=== PATIENT | female | born 2000 | race Caucasian/White ===

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

== ENCOUNTER 2022-01-12 16:37 | Emergency (ER) | payer MEDICAID, SELFPAY ==
[2022-01-12 16:41] VITALS: BP 143/83; PULSE 114; RESP 16; TEMP 36.9; O2SAT 100
[2022-01-12] MEDS: lidocaine 1% INJ 20 mL MDV (mL) INTRADERMA (18:03)
[2022-01-12] MEDS: HYDROcodone-acetaminophen 5-325 mg Tablet 1 TAB PO (18:31)
[2022-01-12 18:32] VITALS: BP 121/67; PULSE 85; RESP 18; O2SAT 98
--- NOTE | 2022-01-12 22:19 | ED_ITS ---
Documented by User: RICHELLE Krishnamurthy 01/12/22 22:27 HPI - Wound/Laceration General: Chief Complaint: Wound/Laceration Stated Complaint: Possible Cyst Time Seen by Provider: 01/12/22 16:45 History of Present Illness: Patient is in today for an abscess on her bottom. She reports that she has had this a year or so ago and had to have it drained in Dr. Marie office. She reports that she did see a surgeon to have that drained also and they told her if it came back again to just call and schedule an appointment. She reports that she has an appointment scheduled this coming Friday. She reports that she just is hurting so bad today she does not know if she can make it. She denies any fever or chills. She has been doing sitz bath's at home to try and help. Associated symptoms: Denies chills or fever(s) Review of Systems Const: Denies: fever(s), chills or body aches Skin/Breast: Reports: other (Abscess to the buttocks) [facility] ED PFSH: Medical History Pilonidal abscess Surgical History History of tonsillectomy Family History Denies family history of Anesthesia complication Bleeding disorder Social History Smoking and tobacco status: never smoked Female Reproductive History: Date of last menstrual period: 08/14/20 Physical Exam Const: COMMON NORMALS: no acute distress, patient oriented x3 and alert Resp: COMMON NORMALS: normal respiratory effort, No use of accessory muscles and clear to auscultation bilaterally AUSCULTATION: clear to auscultation bilaterally Cardio: COMMON NORMALS: regular rate, regular rhythm, S1 normal heart sound present and S2 normal heart sound present RATE: regular rate RHYTHM: regular rhythm HEART SOUNDS: S1 normal heart sound present and S2 normal heart sound present Neuro: COMMON NORMALS: patient oriented x3 SENSORIUM/ORIENTATION: Yes alert Skin: NARRATIVE SKIN EXAM: Patient has golf ball sized fluctuant abscess noted to the right buttocks near the gluteal cleft. There is some firmness and tenderness crossing the gluteal cleft to the left buttocks. No fluctuant mass is appreciated on the left side buttocks. Procedures Abscess I/D Site: other (Buttock) Side (if applicable): right Local Anesthetic: lidocaine 1% Amount of anesthesia used (mL): 5 Technique: incised with #11 blade Amount of fluid expressed (mL): 30 Irrigation: Yes Packing used?: none (Patient refused) Complications: pain Course Vital Signs: Vital signs: Vital Signs Temperature 98.5 F 01/12/22 16:41 Pulse Rate 85 01/12/22 18:32 Respiratory Rate 18 01/12/22 18:32 Blood Pressure 121/67 01/12/22 18:32 Pulse Oximetry 98 01/12/22 18:32 MDM - Wound/Laceration Medical Decision Making 21-year-old female in for abscess to her buttocks. Patient was hesitant to even have this abscess drained. I had a lengthy discussion with her regarding the importance of getting some of that infection out of there. I am afraid that is going to be much more painful and she will feel much worse if she waits until Friday. Area is cleansed and lidocaine is injected. Once adequate anes thetic is obtained 11 blade incision made approximately 1 cm to the area of fluctuance on the right buttocks. Immediate large amount of purulent drainage pouring from the incision. Wound culture is collected. Irrigated the abscess with normal saline and then a large amount of purulent drainage began to pour out again. I would estimate 30+ cc of drainage out of this abscess. Patient stated that she could no longer tolerate drainage of the abscess and did wish that we would stop. There is still some fluctuance noted however it is significantly improved. Patient declined packing. I discussed with her the benefits of packing so that this will stay open and continue draining but she declines. She wants to just wait and follow-up with the surgeon. We discussed conservative treatments at home including sits baths 3 or 4 times a day to help keep this draining warm moist compresses to the area. Patient started on antibiotic medication. Advised her to notify her surgeon and follow-up this week as previously scheduled. Return to the ER for any new or worsening symptoms. Patient is agreeable and voices understanding of all instruction. All questions answered to satisfaction. Pain medication provided to patient under the direction of Dr. Will. Discharge Plan Discharge Patient Disposition: Home Clinical Impression: Abscess Condition: Stable Prescriptions: New clindamycin HCl 300 mg capsule 300 mg PO TID 7 Days Qty: 21 0RF ibuprofen 800 mg tablet 800 mg PO Q8H PRN (Reason: pain) Qty: 14 0RF No Action cephalexin 500 mg capsule 500 mg PO TID 7 Days Qty: 21 1RF Discharge Orders: Discharge ED (Routine); Ordered 01/12/22 Ordered By: Monie Chang Referrals: Murali Marie MD [Primary Care Provider] - Discharge Diet: Usual diet Discharge Activity: Resume usual activity Patient Instructions: Abscess (ED) Activity Restrictions/Additional Instructions: Take antibiotics as prescribed. Do sitz bath and warm moist compresses 3-4 times daily. Follow-up, as previously scheduled, with surgeon this week. Retu rn to the ER for any new or worsening symptoms. Coding Level of Care Code ED Real Estate Administrative Assistant for Chg Fwd Exam Expanded Problem Focused Documented by User: Saul iWll DO 01/13/22 03:02 HPI - Wound/Laceration General: Chief Complaint: Wound/Laceration Stated Complaint: Possible Cyst Time Seen by Provider: 01/12/22 16:45 PFSH ED PFSH: Medical History Pilonidal abscess Surgical History History of tonsillectomy Family History Denies family history of Anesthesia complication Bleeding disorder Social History Smoking and tobacco status: never smoked Course Vital Signs: Vital signs: Vital Signs Temperature 98.5 F 01/12/22 16:41 Pulse Rate 85 01/12/22 18:32 Respiratory Rate 18 01/12/22 18:32 Blood Pressure 121/67 01/12/22 18:32 Pulse Oximetry 98 01/12/22 18:32 MDM - Wound/Laceration Medical Decision Making 21-year-old female in for abscess to her buttocks. Patient was hesitant to even have this abscess drained. I had a lengthy discussion with her regarding the importance of getting some of that infection out of there. I am afraid that is going to be much more painful and she will feel much worse if she waits until Friday. Area is cleansed and lidocaine is injected. Once adequate anesthetic is obtained 11 blade incision made approximately 1 cm to the area of fluctuance on the right buttocks. Immediate large amount of purulent drainage pouring from the incision. Wound culture is collected. Irrigated the abscess with normal saline and then a large amount of purulent drainage began to pour out again. I would estimate 30+ cc of drainage out of this abscess. Patient stated that she could no longer tolerate drainage of the abscess and did wish that we would stop. There is still some fluctuance noted however it is significantly improved. Patient declined packing. I discussed with her the benefits of packing so that this will stay open and continue draining but she declines. She wants to just wait and follow-up with the surgeon. We discussed conservative treatments at home including sits baths 3 or 4 times a day to help keep this draining warm moist compresses to the area. Patient started on antibiotic medication. Advised her to notify her surgeon and follow-up this wee k as previously scheduled. Return to the ER for any new or worsening symptoms. Patient is agreeable and voices understanding of all instruction. All questions answered to satisfaction. Pain medication provided to patient under the direction of Dr. Will. This patient was originally seen by KRISHNA Jung.? I agree with her history, evaluation, and treatment. Discharge Plan Discharge Patient Disposition: Home Clinical Impression: Abscess Condition: Stable Prescriptions: New clindamycin HCl 300 mg capsule 300 mg PO TID 7 Days Qty: 21 0RF ibuprofen 800 mg tablet 800 mg PO Q8H PRN (Reason: pain) Qty: 14 0RF No Action cephalexin 500 mg capsule 500 mg PO TID 7 Days Qty: 21 1RF Discharge Orders: Discharge ED (Routine); Ordered 01/12/22 Ordered By: Monie Chang Referrals: Murali Marie MD [Primary Care Provider] - Discharge Diet: Usual diet Discharge Activity: Resume usual activity Patient Instructions: Abscess (ED) Activity Restrictions/Additional Instructions: Take antibiotics as prescribed. Do sitz bath and warm moist compresses 3-4 times daily. Follow-up, as previously scheduled, with surgeon this week. Return to the ER for any new or worsening symptoms. Coding Level of Care Code ED Real Estate Administrative Assistant for Chg Fwd Exam Expanded Problem Focused
== END 2022-01-12 18:33 | disposition home or self-care (01) ==
PROVIDERS: Emergency Provider Nurse Practitioner Family; PCP Family Medicine
DX: L02.31 Cutaneous abscess of buttock (principal)
CPT/HCPCS: 10060; 87070; 87075; 87205; 99283

== ENCOUNTER 2022-01-21 07:55 | Day surgery (SDC) | payer MEDICAID, SELFPAY ==
[2022-01-18 11:58] VITALS: BMI 25.0
[2022-01-21] VITALS (11 sets, daily range): BP systolic 117–150; BP diastolic 42–92; PULSE 72–108; RESP 16–18; TEMP 36.2–37.1; O2SAT 93–100
[2022-01-21 08:32] LABS: OR HCG Qualitative Urine Negative (Negative)
[2022-01-21] MEDS: acetaminophen 1,000 MG/100 ML PIGGYBACK 400 MG IV (08:34)
[2022-01-21] MEDS: sodium chloride 0.9% 1,000 ML 30 ML IV (08:35)
[2022-01-21] MEDS: heparin 5,000 unit/mL INJ 1 mL 2000 UNIT SUBCUT (08:39)
--- NOTE | 2022-01-21 09:03 | ANES.PREANE2 ---
Pre-Anesthetic Assessment Height/Weight: Height 1.7 m Weight 72.575 kg Temp Pulse Resp BP Pulse Ox O2 Del Method 98.3 F 72 18 146/83 99 01/21/22 08:20 01/21/22 08:20 01/21/22 08:20 01/21/22 08:20 01/21/22 08:20 01/21/22 08:20 Preop Diagnosis: Lower back pilonidal cyst Operation Date: 01/21/22 09:40 Proposed Procedures p Pilonidal Cystectomy(Not Applicable) - Cale Kern MD Familial anesthetic complications: NOne Was Beta Kenton taken within 24 hours: N/A Was Clonidine taken within 24 hours: N/A Last intake: Intake Last Liquid Date 01/20/22 Last Liquid Time 23:30 Last Solid Date 01/20/22 Last Solid Time 22:30 Social No alcohol and No tobacco occassional marijuana use Exam alert, oriented x 3, clear to auscultation bilaterally and regular rate & rhythm Airway Mallampati: Class I Dentition: full Anesthetic Plan ASA status: 1 Anesthesia: General Risk of > 500 ml blood loss (7ml/kg in children): No Medications/Allergies Home Medications Medication Instructions Recorded Confirmed Last Taken Type cephalexin 500 mg capsule 500 mg PO TID 7 days #21 caps 03/06/21 01/21/22 01/20/22 06:00 Rx Allergies Allergy/AdvReac Type Severity Reaction Status Date / Time Latex, Natural Rubber Allergy ALGY-Hives Verified 01/21/22 08:16 Current Medications Generic Name Dose Route Start Last Admin Trade Name Freq PRN Reason Stop Dose Admin Sodium Chloride 1,000 mls @ 30 mls/hr 01/21/22 08:15 01/21/22 08:35 Sodium Chloride 0.9% IV 01/22/22 08:14 30 mls/hr .Q24H SUNNY Administration PFSH Anesthesia Medical History Pilonidal abscess Surgical History History of tonsillectomy Family History Denies family history of Anesthesia complication Bleeding disorder Social History Smoking and tobacco status: never smoked Female Reproductive History Date of last menstrual period: 08/14/20 Data Anesthesia Cardiac Studies: No Data to Display
--- NOTE | 2022-01-21 09:26 | W.PM.OPSUD ---
Surgery/Procedure H&P Update DATE OF PROCEDURE: January 21, 2022 DATE H&P PERFORMED: 01/16/22 H&P UPDATE INFORMATION: I have reviewed H&P completed within last 30 days, I have examined patient prior to procedure and No changes to prior documentation PREOP DIAGNOSIS: Lower back pilonidal cyst PRIMARY INDICATION FOR PROCEDURE: The same PLANNED PROCEDURE: Operation Date: 01/21/22 09:40 Proposed Procedures p Pilonidal Cystectomy(Not Applicable) - Cale Kern MD
[2022-01-21] MEDS: lidocaine 2% INJ 20 mL INJECTION (09:55)
[2022-01-21] MEDS: ceFAZolin 2,000 MG in sodium chloride 0.9% (plus) 50 ML 100 MG IV (09:55)
--- NOTE | 2022-01-21 10:55 | PM.OP ---
Operative Report Date of procedure: January 21, 2022 Pre-op diagnosis: Preop Diagnosis Lower back pilonidal cyst Procedure done: Lower back pilonidal cystectomy Implants: Surgicel followed by 1 inch Nu Gauze packing then ABDs Specimens removed/disposition: Lower back pilonidal mass sutures marked superior Surgeon: Cale Kern MD Public Health Sanitarian Technician: electrical manufacturing technician Ermelinda Estimated blood loss (mL): 3 IV fluids (mL): 800 Procedure: After identifying the patient holding area,, patient was then taken to the operative suite, was placed in first in supine position, endotracheal tube was placed by the anesthesia provider and,Time-out was done verifying the patient's name/date of /planned procedure and destination after the procedure, all were in agreement. SCDs confirmed to be functioning, preoperative antibiotics administered per protocol, and beta chelsi protocol was confirmed,appropriate positioning of the patient was done by me and the staff patient was then placed in prone position, all pressure points were padded. Prep and drape of the lower back region was done under the usual sterile technique. Elliptical skin incision was done including multiple smaller pits of the anal cleft as well as the previous wound(to the left of the midline) of the previous incision and drainage site,incision was done all the way down to the subcutaneous tissues and periosteal covering the coccyx, dissection was then carried on , pilonidal mass all excised en toto , the mass was oriented by 3-0 nylon sutures in the form of sutures marked superior then passed to the circulating nurse for permanent pathology. Curettge was then achieved to the cavity to remove any residual of unhealthy granulation tissues .Hemostasis was then achieved using Bovie cautery, followed by irrigation with normal saline, 2-0 Vicryl were used as an interrupted sutures, bites were taken from the subdermal level to the periosteum and tied down to make the wound gap more shallow to help healing postoperatively and make the packing easier on the patient, suturing was done in an interrupted circumferential fashion . Local anesthesia 2% lidocaine was infiltrated surrounding the wound cavity, wound was then packed by Surgicel/1 inch Nu Gauze and dry 4 x 4 followed by ABDs and tape Count was completed at the end of the procedure Patient was taken to the recovery room in stable condition after extubation I was present for the whole entire procedur
--- NOTE | 2022-01-21 11:07 | P.PCN_ITS ---
PACU note Narrative: VSS, Good respiratory effort, report to HOSPITAL ADMISSIONS OFFICER Exam: awake
--- NOTE | 2022-01-21 11:07 | PM.PACU ---
PACU note Narrative: VSS, Good respiratory effort, report to [employer] BUYER Exam: awake
[2022-01-21] MEDS: fentaNYL 50 mcg/mL INJ 2mL IVP (11:13)
[2022-01-21] MEDS: meperidine 50 mg/mL INJ 12.5 MG IVP (11:13)
[2022-01-21] MEDS: HYDROcodone-acetaminophen 5-325 mg Tablet 1 TAB PO (12:00)
--- NOTE | 2022-01-21 13:20 | ANE.PACU2 ---
Inpatient post-anesthesia follow up: Airway intact: Yes Vital signs: Temperature 97.8 F Pulse Rate 77 Respiratory Rate 18 Blood Pressure 127/78 Pulse Oximetry 97 Oxygen Delivery Me thod Room Air Oxygen Flow Rate 6 Fraction of Inspir ed Oxygen Hydration adequate: Yes Nausea and vomiting: No Pain level: 2 Mental status: Baseline
== END 2022-01-21 12:30 | disposition home or self-care (01) ==
PROVIDERS: Anesthesiology; Surgery; PCP Family Medicine; Visit Provider Surgery
PROC: (CPT 11771; principal; 2022-01-21 09:30)
DX: L05.91 Pilonidal cyst without abscess (principal)
CPT/HCPCS: 11771; 81025; 84703; 88304; J1100; J1644; J2175; J2405; J2704; J2710; J3010; J3490; J7030

== ENCOUNTER 2023-02-18 09:39 | Outpatient (CLI) | payer MEDICAID, SELFPAY ==
[2023-02-18] VITALS (7 sets, daily range): BP systolic 118–128; BP diastolic 66–72; PULSE 80–89; RESP 16; TEMP 35.8; BMI 30.8
[2023-02-18 10:49] LABS: Bilirubin Urine Neg (Negative); Blood Urine Neg (Negative); Glucose Urine UA Norm (Normal); Ketones Urine Negative (Negative); Leukocyte Esterase Urine Negative (Negative); Nitrate Urine Negative (Negative); Protein Urine Neg (Negative); Specific Gravity, Urine 1.015 (1.005-1.030); Urine Appearance Clear (CLEAR); Urine Color Yellow (Yellow); Urobilinogen Urine Norm (Negative); pH Urine 7 (5-7)
[2023-02-18 11:04] LABS: Add Urine Culture? No; Bacteria Urine TRACE /hpf; RBC Urine 0-4 /hpf (0-2); Squamous Epithelial Cell Urine 0-4 /hpf (0-5); WBC Urine 0-4 /hpf (0-5)
== END 2023-02-18 11:20 | disposition home or self-care (01) ==
LOC: OPOB 09:43 → OBGYN 09:45
PROVIDERS: PCP Family Medicine; Visit Provider Family Medicine
DX: O16.9 Unspecified maternal hypertension, unspecified trimester (principal); Z3A.00 Weeks of gestation of pregnancy not specified
CPT/HCPCS: 59025; 81001; 99211

== ENCOUNTER 2023-04-21 12:14 | Outpatient (CLI) | payer MEDICAID, SELFPAY ==
[2023-04-21 12:21] VITALS: TEMP 35.2
[2023-04-21 12:22] VITALS: BP 131/78; PULSE 123
[2023-04-21 12:27] VITALS: BMI 36.8
[2023-04-21 12:36] VITALS: BP 124/75; PULSE 101
== END 2023-04-21 12:55 | disposition home or self-care (01) ==
LOC: OPOB 12:14 → OBGYN 12:45
PROVIDERS: PCP Family Medicine; Visit Provider Family Medicine
DX: O16.9 Unspecified maternal hypertension, unspecified trimester (principal); Z3A.00 Weeks of gestation of pregnancy not specified; R51.9 Headache, unspecified; H53.8 Other visual disturbances
CPT/HCPCS: 59025; 99211

== ENCOUNTER 2023-04-23 19:17 | Inpatient (IN) | payer MEDICAID, SELFPAY ==
[2023-04-23] VITALS (75 sets, daily range): BP systolic 124–170; BP diastolic 58–110; PULSE 92–167; RESP 15; O2SAT 93–100; BMI 36.1
[2023-04-23] MEDS: lactated ringers 1,000 ML 999 ML IV (19:35)
[2023-04-23] MEDS: fentaNYL 50 mcg/mL INJ 2mL IVP (20:02)
[2023-04-23 20:13] LABS: Basophils # 0.1 10^3/uL (0.0-0.1); Basophils % 0.3 %; Eosinophils # 0.2 10^3/uL (0.0-0.8); Eosinophils % 1.1 %; Hematocrit 41.3 % (36-47); Lymphocytes # 2.3 10^3/uL (0.8-4.8); Lymphocytes % 11.3 %; Mean Corpuscular HGB Conc 32.4 g/dL (30-55); Mean Corpuscular Hemoglobin 27.3 pg (27-33); Mean Corpuscular Volume 84.1 fl (85-98); Monocytes % 4.7 %; Neutrophils # 16.64 10^3/uL (1.8-7.7); Neutrophils % 81.3 %; Nucleated Red Blood Cells % 0 %; Platelet Count 288 10^3/cmm (157-399); Red Blood Count 4.91 10^6/uL (3.85-5.65); Red Cell Distribution Width 13.7 % (12.1-15.1); White Blood Count 20.47 10^3/uL (3.29-11.43)
--- NOTE | 2023-04-23 20:22 | ANES.PREANE2 ---
Pre-Anesthetic Assessment Height/Weight: Height 1.7 m Pulse Resp BP 94 15 137/74 04/23/23 20:16 04/23/23 20:02 04/23/23 20:16 Preop Diagnosis: labor pain epidural Familial anesthetic complications: none Was Beta Kenton taken within 24 hours: N/A Was Clonidine taken within 24 hours: N/A Exam alert, oriented x 3, clear to auscultation bilaterally and regular rate & rhythm Airway Submandibular: within normal limits Cervical ROM: within normal limits Mallampati: Class II Dentition: full Pulmonary None reported CV/HEM Anemia None reported Hepatic None reported GI Gastroesophageal Reflux Disease Metabolic None reported [facility] [place] [facility] Scoliosis Neuropsych Anxiety Anesthetic Plan ASA status: 2 Anesthesia: Regional (specify below) Risk of > 500 ml blood loss (7ml/kg in children): No Medications/Allergies Home Medications Medication Instructions Recorded Confirmed Last Taken Type escitalopram oxalate 5 mg tablet 5 mg PO DAILY 02/18/23 02/18/23 02/17/23 22:00 History (Lexapro) ferrous sulfate 325 mg (65 mg 325 mg PO BIDWM 02/18/23 02/18/23 02/18/23 08:00 History iron) tablet (iron) vits no.124-ferrous fum 1 tab PO DAILY 02/18/23 02/18/23 02/18/23 08:00 History 27 mg iron-folic acid 800 mcg tablet ( Vitamin) Allergies Allergy/AdvReac Type Severity Reaction Status Date / Time Latex, Natural Rubber Allergy ALGY-Hives Verified 02/19/22 14:18 Current Medications Generic Name Dose Route Start Last Admin Trade Name Batsheva PRN Reason Stop Dose Admin Fentanyl 25 - 100 mcg 04/23/23 19:15 04/23/23 20:02 Fentanyl 50 Mcg/Ml Inj 2ml IVP 25 mcg Q1H PRN Administration SEVERE PAIN Lactated Ringer's 1,000 mls @ 999 mls/hr 04/23/23 19:15 04/23/23 19:35 Lactated Ringers IV 999 mls/hr .Q1H1M PRN Administration See label comments PFSH Anesthesia Medical History Pilonidal abscess Surgical History History of tonsillectomy Family History Denies family history of Anesthesia complication Bleeding disorder Social History Smoking and tobacco/nicotine status: never used tobacco/nicotine Data Anesthesia 04/23/23 19:22 Short CBC 04/23/23 Range/Units 19:22 WBC 20.47 H (3.29-11.43) 10^3/uL Hgb 13.40 (11.27-16.99) g/dL Hct 41.3 (36-47) % MCV 84.1 L (85-98) fl Plt Count 288 (157-399) 10^3/cmm Neut % (Auto) 81.3 % Neut # (Auto) 16.64 H (1.8-7.7) 10^3/uL Blood Bank 04/23/23 19:22 Blood Type O Positive Rho(D) Type Rh positive Antibody Screen Negative Cardiac Studies: No Data to Display
[2023-04-23] MEDS: ampicillin 2,000 MG in sodium chloride 0.9% (plus) 50 ML 100 MG IV (20:26)
[2023-04-23] MEDS: ROPivacaine syringe 100 MG/50 ML SYRINGE 10 MG EPIDURAL (21:30)
--- NOTE | 2023-04-23 21:50 | ANES.PROC ---
Anesthesia Procedures Procedure/Date: 04/23/23 Epidural: Time Out Performed: Yes Consents Signed: Procedure Consent Consent: requested by attending/covering physician, from patient, risks and benefits reviewed and patient agrees to proceed Lumbar Level: L3-L4 Epidural position: sitting Epidural procedure: sterile prep of area, 1% lidocaine to numb the area, 18 g needle, negative for paresthesia passed, test dose given, 1.5% xylocaine 1:200k epi (3 mL), 0.2% Ropivacaine bolus ml, placed PCEA, no systemic response, sterile dressing applied, L.U.D. no apparent complications and 0.2% Ropiavacaine @ mls/hr (13) Additional Comments: First epidural attempt by Alex Peter CRNA unsuccessful. My attempt: crisp LORTF @ 8cm; catheter advanced easily, secured at 14 cm. 100 mcg Fentanyl given epidural along with bolus from pump. Pain of contractions relieved. VSS stable throughout. No complications.
[2023-04-23] MEDS: oxytocin 30 UNIT/500 ML BAG 600 UNIT IV (22:35)
--- NOTE | 2023-04-23 23:19 | PM.OPHPUD ---
Labor & Delivery H&P Update Date of Procedure: April 23, 2023 Date H&P Performed: 01/16/22 Admission Diagnosis: IUP at 40weeks 2 days gestation Preop diagnosis: labor pain Planned procedure: Expectant management of labor and delivery
--- NOTE | 2023-04-23 23:20 | P.PCNOB_ITS ---
Delivery Note: Date of delivery: April 23, 2023 Pre-delivery diagnoses: IUP at 40 weeks 2 days gestation Active labor Planned adoption Procedure: Normal spontaneous vaginal delivery Delivering Physician: Aline Mir MD Estimated blood loss (mL): 250 Pre-Delivery Course: The patient had routine care at [facility]. She had late onset care due to not knowing she was . She was blood type O+ antibody negative, hepatitis B nonreactive, hepatitis C nonreactive, HIV nonreactive, rubella immune, she was positive for gonorrhea and treated with a negative test of cure, she was chlamydia negative, RPR nonreactive, UDS negative, she passed her glucose tolerance test and she was GBS positive. Delivery: This is a 23-year-old G1, P0 at 40 weeks 2 days gestation who presented to labor and delivery in active labor. She was already 6 cm dilated upon presentation. She was noted to be GBS positive and was started on ampicillin protocol but only received 1 dose prior to delivery. She did receive an epidural for pain management. She had spontaneous rupture of the membranes approximately 1 hour prior to delivery. She had a normal spontaneous vaginal delivery of a viable male infant weight ----Apgars 8 and 9 over an intact perineum. The infant had a nuchal cord x 1 that was reduced upon delivery and significant terminal meconium. The infant was suctioned at delivery. The intended parent cut the cord and the infant was taken to another room. It was mom's wishes to not feed the baby. The placenta was then delivered grossly intact and normal to inspection. There were no lacerations. Mother was doing well after delivery. Coding Level of Care Code Acute Code for Chg Fwd
[2023-04-24] VITALS (13 sets, daily range): BP systolic 122–145; BP diastolic 70–85; PULSE 65–129; RESP 14–17; TEMP 36.4–37.1; O2SAT 96–98
[2023-04-24] MEDS: docusate sodium 100 mg Capsule PO ×2 (09:46→17:00)
[2023-04-24] MEDS: prenatal vitamin Capsule 1 CAP PO (09:46)
[2023-04-24] MEDS: ibuprofen 800 mg tablet PO ×2 (09:46→17:00)
[2023-04-24 11:08] LABS: Hematocrit 39.7 % (36-47); Mean Corpuscular HGB Conc 31.7 g/dL (30-55); Mean Corpuscular Hemoglobin 27.3 pg (27-33); Mean Corpuscular Volume 86.1 fl (85-98); Mean Platelet Volume 10.5 fL (7.4-10.4); Platelet Count 245 10^3/cmm (157-399); Red Blood Count 4.61 10^6/uL (3.85-5.65); Red Cell Distribution Width 13.8 % (12.1-15.1); White Blood Count 20.77 10^3/uL (3.29-11.43)
--- NOTE | 2023-04-24 17:28 | P.DS_ITS ---
Discharge Providers Date of Admission: 04/23/23 19:17 Date of Discharge: April 24, 2023 Attending Provider at Admission: Aline Mir MD Attending Provider at Discharge: Aline Mir MD Primary Care Provider: Murali Marie MD Reason for Visit Reason for Visit: CONTRACTIONS Hospital Course Hospital Course This is a 23-year-old G1 now P1 who was admitted in active labor. She had a normal spontaneous vaginal delivery of a viable male infant. She is day #1 and doing well. She was ambulating, tolerating a regular diet, has some uterine cramping and average vaginal bleeding. She is comfortable with discharge home. Infant has been adopted out. Physical Exam Narrative: Alert and oriented, heart regular rate and rhythm, lungs clear to auscultation bilaterally, abdomen soft nontender, fundus firm U -2, extremities have some edema but no calf tenderness. Discharge Data Studies Completed and Pending Laboratory Results WBC 20.77 10^3/uL (3.29-11.43) H 04/24/23 10:58 RBC 4.61 10^6/uL (3.85-5.65) 04/24/23 10:58 Hgb 12.60 g/dL (11.27-16.99) 04/24/23 10:58 Hct 39.7 % (36-47) 04/24/23 10:58 MCV 86.1 fl (85-98) 04/24/23 10:58 MCH 27.3 pg (27-33) 04/24/23 10:58 MCHC 31.7 g/dL (30-55) 04/24/23 10:58 RDW 13.8 % (12.1-15.1) 04/24/23 10:58 Plt Count 245 10^3/cmm (157-399) 04/24/23 10:58 MPV 10.5 fL (7.4-10.4) H 04/24/23 10:58 Neut % (Auto) 81.3 % 04/23/23 19:22 Lymph % (Auto) 11.3 % 04/23/23 19:22 [place] % (Auto) 4.7 % 04/23/23 19:22 Eos % (Auto) 1.1 % 04/23/23 19:22 Baso % (Auto) 0.3 % 04/23/23 19:22 Neut # (Auto) 16.64 10^3/uL (1.8-7.7) H 04/23/23 19:22 Lymph # (Auto) 2.3 10^3/uL (0.8-4.8) 04/23/23 19:22 [place] # (Auto) 1.0 10^3/uL (0.2-0.9) H 04/23/23 19:22 Eos # (Auto) 0.2 10^3/uL (0.0-0.8) 04/23/23 19:22 Baso # (Auto) 0.1 10^3/uL (0.0-0.1) 04/23/23 19:22 Nucleated RBC % (auto) 0 % 04/23/23 19: Nucleated RBCs # 0.0 /100WBC 04/23/23 19:22 Blood Type O Positive 04/23/23 19:22 Rho(D) Type Rh positive 04/23/23 19:22 Antibody Screen Negative 04/23/23 19:22 Vitals Last Vital Signs Temp 97.5 F L 04/24/23 06:41 Pulse 114 H 04/24/23 06:41 Resp 16 04/24/23 06:41 BP 132/71 04/24/23 06:41 Pulse Ox 96 04/24/23 06:41 O2 Del Method Room Air 04/23/23 19:00 Discharge Plan Discharge Patient Disposition: Home Condition: Stable Prescriptions: Continued ferrous sulfate [iron] 325 mg (65 mg iron) Tablet 325 mg PO BIDWM escitalopram oxalate [Lexapro] 5 mg Tablet 5 mg PO DAILY Vitamin 27 mg iron- 800 mcg Tablet 1 tab PO DAILY Discharge Orders: Discharge Order (Routine); Ordered 04/24/23 Ordered By: Aline Mir Referrals: Aline Mir MD [Physician] - 1 week Discharge Diet: Usual diet Discharge Activity: Limit activity as instructed Patient Instructions: Opioid Safety Activity Restrictions/Additional Instructions: Nothing per vagina for 6 weeks Discharge Attestations Time Spent in Discharge Care*: less than 30 min Quality Metrics Clinical Quality Measures [ No reported AMI, CVA or VTE this stay] Coding Level of Care Code Acute Code for Chg Fwd
--- NOTE | 2023-06-09 15:11 | ANE.PACU2 ---
Inpatient post-anesthesia follow up: Airway intact: Yes Vital signs: Temperature 98.2 F Pulse Rate 65 Respiratory Rate 16 Blood Pressure 134/85 Pulse Oximetry 98 Oxygen Delivery Me thod Room Air Oxygen Flow Rate Fraction of Inspir ed Oxygen Hydration adequate: Yes Nausea and vomiting: No Pain level: 1 Mental status: Baseline Epidural Start/End: Epidural Start Date: 04/23/23 Epidural Start Time: 21:17 Epidural End Date: 04/23/23 Epidural End Time: 22:49
== END 2023-04-24 20:25 | disposition home or self-care (01) | DRG 807 ==
LOC: OPOB 04-24 08:12 → OBGYN 04-24 08:12
PROVIDERS: Absent Provider Family Medicine; Admitting Provider Family Medicine; PCP Family Medicine; Visit Provider Family Medicine
DX: O48.0 Post-term pregnancy (principal); Z37.0 Single live birth; Z3A.40 40 weeks gestation of pregnancy; O99.824 Streptococcus B carrier state complicating childbirth; O99.344 Other mental disorders complicating childbirth; F41.9 Anxiety disorder, unspecified; O69.1XX0 Labor and delivery complicated by cord around neck, with compression, not applicable or unspecified; O77.0 Labor and delivery complicated by meconium in amniotic fluid; O99.62 Diseases of the digestive system complicating childbirth; K21.9 Gastro-esophageal reflux disease without esophagitis
CPT/HCPCS: 36415; 51702; 59025; 59409; 85025; 85027; 86850; 86900; 96374; 96376; 99211; J0290; J2590; J2795; J3010; J7120